=== PATIENT | female | born 1985 | race Caucasian/White ===

== ENCOUNTER 2018-01-31 07:11 | Emergency (ER) | payer OTHER ==
[~2018-01-31] VITALS: Ht 165.1 cm; Wt 66.2 kg
[~2018-01-31 07:11] MED LIST: AVIANE1 EACH; PROPRANOLOL 1010 MG PO
[2018-01-31 07:51] LABS: ABSOLUTE EOSINOPHILS 0.1 thou/uL (0.0-0.7); ABSOLUTE LYMPHOCYTES 0.8 thou/uL (0.8-5.3); ABSOLUTE MONOCYTES 0.3 thou/uL (0.0-1.2); ABSOLUTE NEUTROPHILS 2.2 thou/uL (1.6-8.1); BASOPHILS 0.7 %; HEMATOCRIT 38.6 % (37.0-47.0); HEMOGLOBIN 13.1 gm/dL (12.0-15.0); LYMPHOCYTES 23.2 %; MCH 30.3 pg (26.0-34.0); MCV 89.1 fL (80.0-100.0); MONOCYTES 8.6 %; MPV 9.9 fl. (7.2-11.1); NUCLEATED RBCS 0 /100WBC; PLATELET COUNT* 142 thou/uL (150-400); POLYS 64.5 %; RBC 4.33 mil/uL (4.20-5.00); RDW-CV 12.4 % (10.5-14.5); WBC 3.4 thou/uL (4.0-11.0)
[2018-01-31 07:55] LABS: CALCIUM 8.5 mg/dL (8.5-10.1); CREATININE 0.7 mg/dL (0.6-1.3)
[2018-01-31 07:59] LABS: ALBUMIN 3.3 g/dL (3.4-5.0); TOTAL BILIRUBIN 0.4 mg/dL (<0.1-1.0); TOTAL PROTEIN 6.5 g/dL (6.4-8.2)
[2018-01-31 09:04] VITALS: BP 135/69
== END 2018-01-31 09:04 | disposition home or self-care (01) ==
LOC: M.ERS 07:11
PROVIDERS: Family Medicine
DX: R19.7 Diarrhea, unspecified (principal); Z98.890 Other specified postprocedural states